=== PATIENT | male | born 1995 | race Caucasian/White ===

== ENCOUNTER 2017-05-20 21:03 | Emergency (ER) | payer MEDICAID, OTHER ==
[~2017-05-20] VITALS: Ht 170.2 cm; Wt 78.5 kg
[2017-05-20 22:48] VITALS: Ht 170.2 cm; Wt 78.5 kg
[2017-05-20] MEDS ORDERED: ONDANSETRON (ODT) 4 MG TAB ODT STA (23:56)
[2017-05-21] MEDS ORDERED: ONDA4TAB14 PO (01:17)
--- NOTE | 2017-05-21 02:00 | ERD ---
ER Documentation Chief Complaint Date/Time DATE: 05/21/17 TIME: 01:55 Chief Complaint N/V SINC3 1800 HPI 21-year-old male is complaining of abdominal pain, vomiting, and diarrhea 4 hours. Abdominal pain is diffuse, varies in intensity but never goes away. He had multiple episodes of vomiting and multiple episodes diarrhea since the onset. Last episode both was about 5 minutes ago. He is unable to maintain fluid intake. The vomitus is nonbloody and nonbilious, the diarrhea is nonbloody. His last meal was 2 hours before onset of symptoms. He had a homemade quinoa salad. He feels chills, but denies fever. Denies shortness of breath. ROS All systems reviewed and are negative except as per history of present illness. Medications Home Meds Active Scripts Ondansetron (Ondansetron Odt) 4 Mg Tab.rapdis, 4 MG PO Q6H Y for NAUSEA AND/OR VOMITING, #10 TAB Prov:CATRACHO HILLIARD TIN DIPPER 05/21/17 Allergies Allergies: Coded Allergies: No Known Allergy (Unverified , 05/20/17) PMhx/Soc Medical and Surgical Hx: pt denies Medical Hx, pt denies Surgical Hx Hx Alcohol Use: No Hx Substance Use: Yes (marijuana recreationally ) Hx Tobacco Use: No Smoking Status: Never smoker Physical Exam Vitals Vital Signs Date Time Temp Pulse Resp B/P Pulse Ox O2 Delivery O2 Flow Rate FiO2 05/20/17 22:48 98.8 103 20 129/75 96 Physical Exam General: Well-developed, well-nourished, conscious and coherent, in no distress Skin: Warm and dry without rash, good texture and turgor Head: Normocephalic without evidence of trauma Eyes: Sclera and conjunctivae normal; pupils equal, round, and reactive to light; extraocular movements are intact Chest: Normal AP diameter. Good expansion without retractions. Nontender. Lungs are clear to auscultate bilaterally with good tidal volume Heart: Regular rate and rhythm. No murmur, rub, or gallops heard Abdomen: Soft and nontender without masses, guarding, or rebound. Bowel sounds are active. No hepatosplenomegaly Extremities: Full range of motion. Good strength bilaterally. No clubbing, cyanosis, or edema. Peripheral pulses are intact. Sensation intact Neuro: Alert and oriented 4, GCS 15. Cranial nerves grossly intact. Motor and sensory exams nonfocal. Moves all extremities. Speech clear. Gait normal Results 24 hrs Current Medications Medications (Trade) Dose Ordered Sig/Rojas Route PRN Reason Start Time Stop Time Status Last Admin Dose Admin Ondansetron HCl (Zofran Odt) 4 mg ONCE STAT ODT 05/20/17 23:56 05/20/17 23:57 DC 05/21/17 00:04 Procedures/MDM 21-year-old male present ED with abdominal pain, vomiting, diarrhea 4 hours. Zofran given to the patient in the ED. After Zofran, patient able to pass p.o. fluid challenge. Patient also reports feeling much better. Patient is afebrile, does not have any abdominal tenderness on palpation. I doubt acute appendicitis, cholecystitis or other acute abdomen. Patient's symptoms is consistent with either viral gastroenteritis or foodborne illness. Patient does not have any active vomiting, is able to maintain by mouth fluid intake. Patient appears well, stable for discharge and outpatient management. Patient is advised to either bland diet for the next several days. Medical decision making shared with patient and family. Education provided to patient and family. Patient and family expressed understanding of the plan. Medications on discharge: Zofran. Follow-up: Primary care provider in 2-3 days or return to ED if worse. Disclaimer: Inadvertent spelling and grammatical errors are likely due to EHR/ dictation software use and do not reflect on the overall quality of patient care. Also, please note that the electronic time recorded on this note does not necessarily reflect the actual time of the patient encounter. Departure Diagnosis: Primary Impression: Vomiting and diarrhea Condition: Stable Patient Instructions: Self-Care for Vomiting and Diarrhea Referrals: DOCTOR,NOT ON STAFF (PCP) [facility] YOU HAVE RECEIVED A MEDICAL SCREENING EXAM AND THE RESULTS INDICATE THAT YOU DO NOT HAVE A CONDITION THAT REQUIRES URGENT TREATMENT IN THE EMERGENCY DEPARTMENT. FURTHER EVALUATION AND TREATMENT OF YOUR CONDITION CAN WAIT UNTIL YOU ARE SEEN IN YOUR DOCTORS OFFICE WITHIN THE NEXT 1-2 DAYS. IT IS YOUR RESPONSIBILITY TO MAKE AN APPOINTMENT FOR FOLOW-UP CARE. IF YOU HAVE A PRIMARY DOCTOR --you should call your primary doctor and schedule an appointment IF YOU DO NOT HAVE A PRIMARY DOCTOR YOU CAN CALL OUR PHYSICIAN REFERRAL HOTLINE AT IF YOU CAN NOT AFFORD TO SEE A PHYSICIAN YOU CAN CHOSE FROM THE FOLLOWING [facility] [address] [facility] [facility] [address] [facility] [address] [facility] [address] [facility]. [facility] [phone] [id number] [facility]. [facility] [address] Additional Instructions: Call your primary care doctor TOMORROW for an appointment during the next 2-3 days.See the doctor sooner or return here if your condition worsens before your appointment time. CATRACHO HILLIARD NP May 21, 2017 02:00
== END 2017-05-21 01:30 | disposition home or self-care (01) ==
LOC: FTE 21:03
DX: R11.10 Vomiting, unspecified (principal); R19.7 Diarrhea, unspecified
CPT/HCPCS: Z7502; Z7610; 99283